=== PATIENT | female | born 1990 | race African-American/Black ===

== ENCOUNTER 2019-11-13 18:30 | Emergency (ER) | payer SELFPAY | END 2019-11-13 20:53 | disposition left against medical advice (07) | LOC: ER 18:30 | DX: Z53.21 Procedure and treatment not carried out due to patient leaving prior to being seen by health care provider (principal) ==

== ENCOUNTER 2020-06-14 | Observation (INO) | payer MEDICAID ==
[~2020-06-14] VITALS: Ht 167.6 cm; Wt 104.3 kg
[2020-06-14] MEDS ORDERED: PREN-15 PO (02:44)
== END 2020-06-14 03:00 | disposition home or self-care (01) ==
LOC: 8 EST LDRP
PROVIDERS: ADMIT Obstetrics & Gynecology; ATTEND Obstetrics & Gynecology
DX: O42.92 Full-term premature rupture of membranes, unspecified as to length of time between rupture and onset of labor (principal); O62.9 Abnormality of forces of labor, unspecified; Z3A.38 38 weeks gestation of pregnancy
CPT/HCPCS: 76815; 76818; 99281; G0378

== ENCOUNTER → 2020-06-15 | Outpatient (CLI) | payer MEDICAID ==
[~2020-06-15] MED LIST: IBUP-2028 PO; PREN-15 PO
== END | disposition home or self-care (01) ==
LOC: LAB 12:26
PROVIDERS: ATTEND Obstetrics & Gynecology
DX: Z01.818 Encounter for other preprocedural examination (principal); Z11.59 Encounter for screening for other viral diseases
CPT/HCPCS: C9803; U0003

== ENCOUNTER 2020-06-17 07:27 | Inpatient (IN) | payer MEDICAID ==
[~2020-06-17] VITALS: Ht 167.6 cm; Wt 92.1 kg
[~2020-06-17 07:27] MED LIST changes: -IBUP-2028 PO
[2020-06-17] MEDS ORDERED: DEXT 5%/LR + PITOCIN 20UNITS/L 1,000 ML IV SCH (08:56)
[2020-06-17 09:13] LABS: BASOPHILS % 0.4 % (0.0-2.0); EOSINOPHILS % 0.7 % (0.0-5.0); HEMATOCRIT. 36.1 % (36.0-48.0); HEMOGLOBIN. 12.3 g/dL (12.0-16.0); LYMPHOCYTES % 20.7 % (20.0-50.0); MEAN CORPUSCULAR HEMOGLOBIN 29.6 pg (28.0-32.0); MEAN CORPUSCULAR VOLUME 86.9 fL (81.0-99.0); MEAN PLATELET VOLUME 9.2 fl (7.4-10.4); MONOCYTES % 8.2 % (2.0-8.0); PLATELET 165 x1000/uL (130-400); RED BLOOD CELL COUNT 4.16 mill/uL (4.2-5.4); RED CELL DISTRIBUTION WIDTH 18.5 % (11.6-14.6)
[2020-06-17 09:16] LABS: CLARITY URINE CLEAR (CLEAR); COLOR URINE YELLOW (YELLOW); KETONES URINE NEGATIVE (NEGATIVE); LEUKOCYTE ESTERASE URINE NEGATIVE (NEGATIVE); NITRITE URINE NEGATIVE (NEGATIVE); OCCULT BLOOD URINE NEGATIVE (NEGATIVE); PH URINE 5.5 (4.5-8.0); PROTEIN URINE NEGATIVE (NEGATIVE); SPECIFIC GRAVITY URINE 1.013 (1.005-1.030); UROBILINOGEN URINE 0.2 E.U./dL (0.2-1.0)
[2020-06-17] MEDS: LACTATED RINGERS 1,000 ML IV SCH ×2 (09:19→09:21)
[2020-06-17 09:28] LABS: PARTIAL THROMBOPLASTIN TIME 28.2 sec (23.4-31.0); PROTHROMBIN TIME 10.5 sec (9.6-11.0)
[2020-06-17 09:37] LABS: *AMPHETAMINES SCREEN URINE NEGATIVE (NEGATIVE); *BARBITURATES SCREEN URINE NEGATIVE (NEGATIVE)
[2020-06-17 09:38] LABS: *BENZODIAZEPINES SCREEN URINE NEGATIVE (NEGATIVE); *COCAINE SCREEN URINE NEGATIVE (NEGATIVE); CANNABINOID URINE SCREEN NEGATIVE (NEGATIVE); METHADONE URINE SCREEN NEGATIVE (NEGATIVE); OPIATES URINE SCREEN NEGATIVE (NEGATIVE); PHENCYCLIDINE URINE SCREEN NEGATIVE (NEGATIVE)
[2020-06-17] MEDS ORDERED: CITRIC ACID/SODIUM CITRATE SOLN 30ML UDC PO ONE (09:45)
[2020-06-17] MEDS ORDERED: MIDAZOLAM HCL 2 MG/2 ML VIAL ONE (10:32)
[2020-06-17] MEDS ORDERED: FENTANYL CITRATE/PF 50MCG/ML 5ML VIAL ONE (10:32)
[2020-06-17] MEDS ORDERED: MORPHINE SULFATE/PF 1MG/ML 10ML AMP ONE (10:32)
[2020-06-17] MEDS ORDERED: DIPHENHYDRAMINE 25MG CAPSULE PO PRN (12:00)
[2020-06-17] MEDS ORDERED: IBUPROFEN 400MG TABLET PO PRN (12:00)
[2020-06-17] MEDS ORDERED: ONDANSETRON HCL 4MG/2ML INJ IV PRN (12:00)
[2020-06-17] MEDS ORDERED: HYDROCODONE/ACETAMINOPHEN 5/325MG TABLET PO PRN (12:00)
[2020-06-17] MEDS ORDERED: RHO(D) IMMUNE GLOBULIN 300 MCG/SYR IM PRN (12:00)
[2020-06-17] MEDS ORDERED: LANOLIN OINT 7GM TUBE TOP PRN (12:00)
[2020-06-17 13:45] VITALS: BP 107/54
[2020-06-17 14:15] VITALS: BP 104/53
[2020-06-17 14:58] LABS: HEPATITIS B SURFACE ANTIGEN NEGATIVE
[2020-06-17] MEDS ORDERED: TETANUS AND DIPHTHERIA TOX/PF 0.5ML SYR (ADULT) IM ONE (15:30)
[2020-06-17] MEDS: DEXT 5%/LR + PITOCIN 20UNITS/L 1,000 ML IV SCH (17:49)
[2020-06-17] MEDS ORDERED: TETANUS, DIPHTHERIA, PERTUSSIS VAC/PF 0.5ML (>7YR OLD) IM ONE (18:00)
[2020-06-17 20:00] VITALS: BP 110/59
[2020-06-17] MEDS ORDERED: DOCUSATE SODIUM 100MG CAPSULE PO SCH (21:00)
[2020-06-18] VITALS: BP 117/49
[2020-06-18] MEDS: DEXT 5%/LR + PITOCIN 20UNITS/L 1,000 ML IV SCH (02:11)
[2020-06-18] MEDS ORDERED: DIPHENHYDRAMINE 50MG/ML VIAL IV PRN (03:00)
[2020-06-18] MEDS ORDERED: KETOROLAC 30MG/ML VIAL IV PRN (03:00)
[2020-06-18 04:00] VITALS: BP 97/65
[2020-06-18 07:17] LABS: BASOPHILS % 0.4 % (0.0-2.0); EOSINOPHILS % 0.9 % (0.0-5.0); HEMATOCRIT. 32.5 % (36.0-48.0); HEMOGLOBIN. 11.1 g/dL (12.0-16.0); LYMPHOCYTES % 12.7 % (20.0-50.0); MEAN CORPUSCULAR HEMOGLOBIN 29.9 pg (28.0-32.0); MEAN CORPUSCULAR VOLUME 87.2 fL (81.0-99.0); MEAN PLATELET VOLUME 9.4 fl (7.4-10.4); MONOCYTES % 7.7 % (2.0-8.0); NEUTROPHILS % 78.3 % (40.0-76.0); PLATELET 149 x1000/uL (130-400); RED BLOOD CELL COUNT 3.72 mill/uL (4.2-5.4); RED CELL DISTRIBUTION WIDTH 18.6 % (11.6-14.6)
[2020-06-18 08:42] VITALS: BP 104/54
[2020-06-18 16:00] VITALS: BP 101/52
[2020-06-18] MEDS: PRENATAL VIT/FE FUMARATE/FA TABLET PO SCH (16:07)
[2020-06-18] MEDS: ACETAMINOPHEN WITH CODEINE 300/30MG TABLET PO PRN ×2 (16:09→21:59)
[2020-06-18 20:30] VITALS: BP 129/84
[2020-06-19 05:10] VITALS: BP 105/52
[2020-06-19] MEDS: ACETAMINOPHEN WITH CODEINE 300/30MG TABLET PO PRN (05:42)
[2020-06-19 08:27] VITALS: BP_SYST 113; BP_SYST 115; BP_DIAS 58; BP_DIAS 68
[2020-06-19] MEDS: PRENATAL VIT/FE FUMARATE/FA TABLET PO SCH (09:28)
[2020-06-19] MEDS ORDERED: IBUP-2028 PO (09:34)
[2020-06-19] MEDS ORDERED: NA PHOS,M-B/NA PHOS,DI-BA ENEMA 118ML PR SCH (09:45)
== END 2020-06-19 14:40 | disposition home or self-care (01) | DRG 540 ==
LOC: OBSVTOIN 07:27 → 8 EST A/PP 07:27 → 8EST 13:35
PROVIDERS: ADMIT Obstetrics & Gynecology; ATTEND Obstetrics & Gynecology
PROC: 10D00Z1 Extraction of Products of Conception, Low, Open Approach (ICD-10-PCS; principal; 2020-06-17)
DX: O34.211 Maternal care for low transverse scar from previous cesarean delivery (principal); D62 Acute posthemorrhagic anemia; D57.3 Sickle-cell trait; O99.02 Anemia complicating childbirth; Z37.0 Single live birth; Z3A.39 39 weeks gestation of pregnancy
CPT/HCPCS: 36415; 80305; 81003; 85025; 86592; 86703; 86762; 86850; 86900; 86920; 87340; 88307; 90714; 90715; J1200; J1885; J2250; J2274; J2590; J3010

== ENCOUNTER 2022-08-06 16:31 | Emergency (ER) | payer MEDICAID ==
[~2022-08-06] VITALS: Ht 167.6 cm; Wt 104.0 kg
[~2022-08-06 16:31] MED LIST changes: +IBUP-2028 PO; -PREN-15 PO
[2022-08-06 16:33] VITALS: BP 155/68
[2022-08-06] MEDS ORDERED: ACETAMINOPHEN 325MG TABLET PO PRN (17:00)
[2022-08-06 17:22] LABS: BASOPHILS % 0.4 % (0.0-2.0); EOSINOPHILS % 0.5 % (0.0-5.0); HEMATOCRIT. 33.2 % (36.0-48.0); HEMOGLOBIN. 11.1 g/dL (12.0-16.0); LYMPHOCYTES % 15.3 % (20.0-50.0); MEAN CORPUSCULAR HEMOGLOBIN 28.4 pg (28.0-32.0); MEAN CORPUSCULAR VOLUME 84.9 fL (81.0-99.0); MEAN PLATELET VOLUME 7.8 fl (7.4-10.4); MONOCYTES % 6.6 % (2.0-8.0); NEUTROPHILS % 77.2 % (40.0-76.0); PLATELET 281 x1000/uL (130-400); RED BLOOD CELL COUNT 3.92 mill/uL (4.2-5.4); RED CELL DISTRIBUTION WIDTH 16.7 % (11.6-14.6)
[2022-08-06 17:26] LABS: CHLORIDE 106 mEq/L (98-107)
[2022-08-06 17:50] LABS: B-HCG QUANTITATIVE 42144 mIU/mL (<3)
[2022-08-06 20:36] LABS: CLARITY URINE CLEAR (CLEAR); COLOR URINE YELLOW (YELLOW); KETONES URINE 1+ (NEGATIVE); LEUKOCYTE ESTERASE URINE NEGATIVE (NEGATIVE); NITRITE URINE NEGATIVE (NEGATIVE); OCCULT BLOOD URINE NEGATIVE (NEGATIVE); PH URINE 5.5 (4.5-8.0); PROTEIN URINE NEGATIVE (NEGATIVE); SPECIFIC GRAVITY URINE 1.014 (1.005-1.030); UROBILINOGEN URINE 0.2 E.U./dL (0.2-1.0)
== END 2022-08-06 21:41 | disposition home or self-care (01) ==
LOC: ER 16:31
DX: O26.891 Other specified pregnancy related conditions, first trimester (principal); R10.9 Unspecified abdominal pain; Z3A.13 13 weeks gestation of pregnancy
CPT/HCPCS: 36415; 76801; 80053; 81003; 84702; 85025; 86850; 86900; 99284

== ENCOUNTER 2022-12-28 03:33 | Observation (INO) | payer MEDICAID ==
[~2022-12-28] VITALS: Ht 167.6 cm; Wt 106.6 kg
[2022-12-28] MEDS ORDERED: LACTATED RINGERS 1,000 ML IV ONE (04:15)
[2022-12-28] MEDS ORDERED: LACTATED RINGERS 1,000 ML IV SCH (04:15)
[2022-12-28] MEDS ORDERED: PREN1TAB78 PO (06:43)
[2022-12-28] MEDS ORDERED: FERR325T6 PO (06:43)
== END 2022-12-28 07:10 | disposition home or self-care (01) ==
LOC: 8 EST LDRP 03:33
PROVIDERS: ADMIT Obstetrics & Gynecology; ATTEND Obstetrics & Gynecology
DX: O26.893 Other specified pregnancy related conditions, third trimester (principal); R10.9 Unspecified abdominal pain; N89.8 Other specified noninflammatory disorders of vagina; O62.9 Abnormality of forces of labor, unspecified; Z3A.34 34 weeks gestation of pregnancy; Z98.891 History of uterine scar from previous surgery
CPT/HCPCS: 59025; 76805; 76818; 82731; 96360; 96361; G0378; 99281

== ENCOUNTER 2023-01-04 20:22 | Observation (INO) | payer MEDICAID ==
[~2023-01-04] VITALS: Ht 167.6 cm; Wt 106.6 kg
[~2023-01-04 20:22] MED LIST changes: +FERR325T6 PO; -IBUP-2028 PO; +PREN1TAB78 PO
[2023-01-04] MEDS ORDERED: ACETAMINOPHEN 500MG TABLET PO PRN ×2 (21:14→22:45)
[2023-01-04] MEDS ORDERED: ASPI-1497 PO (21:15)
[2023-01-04] MEDS ORDERED: LACTATED RINGERS 1,000 ML IV NR (21:17)
[2023-01-04] MEDS ORDERED: LACTATED RINGERS 1,000 ML IV SCH (21:30)
[2023-01-04 22:23] LABS: BASOPHILS % 0.3 % (0.0-2.0); EOSINOPHILS % 0.8 % (0.0-5.0); HEMATOCRIT. 34.5 % (36.0-48.0); HEMOGLOBIN. 11.6 g/dL (12.0-16.0); LYMPHOCYTES % 17.5 % (20.0-50.0); MEAN CORPUSCULAR VOLUME 89.5 fL (81.0-99.0); MEAN PLATELET VOLUME 8.5 fl (7.4-10.4); MONOCYTES % 7.6 % (2.0-8.0); NEUTROPHILS % 73.8 % (40.0-76.0); PLATELET 204 x1000/uL (130-400); RED BLOOD CELL COUNT 3.86 mill/uL (4.2-5.4)
[2023-01-04 22:25] LABS: CLARITY URINE CLEAR (CLEAR); COLOR URINE YELLOW (YELLOW); KETONES URINE NEGATIVE (NEGATIVE); LEUKOCYTE ESTERASE URINE NEGATIVE (NEGATIVE); NITRITE URINE NEGATIVE (NEGATIVE); OCCULT BLOOD URINE NEGATIVE (NEGATIVE); PROTEIN URINE NEGATIVE (NEGATIVE); SPECIFIC GRAVITY URINE 1.005 (1.005-1.030); UROBILINOGEN URINE 0.2 E.U./dL (0.2-1.0)
== END 2023-01-04 23:35 | disposition home or self-care (01) ==
LOC: 8 EST LDRP 20:22
PROVIDERS: ADMIT Obstetrics & Gynecology; ATTEND Obstetrics & Gynecology
DX: O26.893 Other specified pregnancy related conditions, third trimester (principal); R10.32 Left lower quadrant pain; R51.9 Headache, unspecified; Z3A.35 35 weeks gestation of pregnancy
CPT/HCPCS: 36415; 59025; 81003; 85025; 96360; G0378

== ENCOUNTER 2023-01-30 06:47 | Inpatient (IN) | payer MEDICAID, OTHER ==
[~2023-01-30] VITALS: Ht 167.6 cm; Wt 108.4 kg
[~2023-01-30 06:47] MED LIST changes: +ASPI-1497 PO
[2023-01-30] MEDS ORDERED: EPHEDRINE SULFATE 50MG/ML VIAL ONE (08:21)
[2023-01-30] MEDS ORDERED: MORPHINE SULFATE/PF 1MG/ML 10ML AMP ONE (08:21)
[2023-01-30] MEDS ORDERED: ONDANSETRON HCL 4MG/2ML INJ ONE (08:21)
[2023-01-30] MEDS ORDERED: CEFAZOLIN SODIUM 1000MG/VIAL ONE (08:21)
[2023-01-30] MEDS ORDERED: DIPHENHYDRAMINE 50MG/ML VIAL ONE (08:21)
[2023-01-30] MEDS ORDERED: OXYTOCIN 10 UNITS/ML 1ML ONE (08:21)
[2023-01-30] MEDS ORDERED: PHENYLEPHRINE HCL 10 MG/ML 1ML (IV VIAL) IV ONE (08:22)
[2023-01-30] MEDS ORDERED: SODIUM CHLORIDE 0.9% 10ML VIAL ONE (08:22)
[2023-01-30] MEDS ORDERED: FENTANYL CITRATE/PF 50MCG/ML 2ML VIAL ONE (08:22)
[2023-01-30] MEDS ORDERED: NALOXONE HCL 0.4 MG/ML 1ML VIAL IM PRN (08:30)
[2023-01-30] MEDS: LACTATED RINGERS 1,000 ML IV SCH ×2 (09:18→10:31)
[2023-01-30 09:58] LABS: BASOPHILS % 0.3 % (0.0-2.0); EOSINOPHILS % 0.6 % (0.0-5.0); HEMATOCRIT. 33.9 % (36.0-48.0); HEMOGLOBIN. 11.5 g/dL (12.0-16.0); LYMPHOCYTES % 17.3 % (20.0-50.0); MEAN CORPUSCULAR HEMOGLOBIN 29.9 pg (28.0-32.0); MEAN CORPUSCULAR VOLUME 88.2 fL (81.0-99.0); MEAN PLATELET VOLUME 8.8 fl (7.4-10.4); MONOCYTES % 8.2 % (2.0-8.0); NEUTROPHILS % 73.6 % (40.0-76.0); PLATELET 183 x1000/uL (130-400); RED BLOOD CELL COUNT 3.84 mill/uL (4.2-5.4); RED CELL DISTRIBUTION WIDTH 17.1 % (11.6-14.6)
[2023-01-30 10:05] LABS: PARTIAL THROMBOPLASTIN TIME 28.3 sec (23.4-31.0); PROTHROMBIN TIME 10.4 sec (9.6-11.0)
[2023-01-30 10:08] LABS: CLARITY URINE CLEAR (CLEAR); COLOR URINE YELLOW (YELLOW); KETONES URINE NEGATIVE (NEGATIVE); LEUKOCYTE ESTERASE URINE NEGATIVE (NEGATIVE); NITRITE URINE NEGATIVE (NEGATIVE); OCCULT BLOOD URINE NEGATIVE (NEGATIVE); PH URINE 5.5 (4.5-8.0); PROTEIN URINE NEGATIVE (NEGATIVE); SPECIFIC GRAVITY URINE 1.014 (1.005-1.030); UROBILINOGEN URINE 0.2 E.U./dL (0.2-1.0)
[2023-01-30 10:34] LABS: HEPATITIS B SURFACE ANTIGEN NEGATIVE
[2023-01-30 10:38] LABS: *AMPHETAMINES SCREEN URINE NEGATIVE (NEGATIVE); *BARBITURATES SCREEN URINE NEGATIVE (NEGATIVE); *BENZODIAZEPINES SCREEN URINE NEGATIVE (NEGATIVE); *COCAINE SCREEN URINE NEGATIVE (NEGATIVE); CANNABINOID URINE SCREEN NEGATIVE (NEGATIVE); METHADONE URINE SCREEN NEGATIVE (NEGATIVE); OPIATES URINE SCREEN NEGATIVE (NEGATIVE); PHENCYCLIDINE URINE SCREEN NEGATIVE (NEGATIVE)
[2023-01-30] MEDS ORDERED: KETOROLAC 60MG/2ML VIAL IM ONE (15:15)
[2023-01-30] MEDS ORDERED: NALOXONE HCL 0.4 MG/ML 1ML VIAL IV PRN (15:30)
[2023-01-30] MEDS ORDERED: DIPHENHYDRAMINE 50MG/ML VIAL IV PRN (15:30)
[2023-01-30] MEDS ORDERED: BUTORPHANOL TARTRATE 2 MG/ML VIAL IV PRN (15:30)
[2023-01-30] MEDS ORDERED: LANOLIN OINT 7GM TUBE TOP PRN (16:30)
[2023-01-30] MEDS ORDERED: ONDANSETRON HCL 4MG/2ML INJ IV PRN (16:30)
[2023-01-30] MEDS ORDERED: RHO(D) IMMUNE GLOBULIN 300 MCG/SYR IM PRN (16:30)
[2023-01-30] MEDS ORDERED: OXYTOCIN 30 UNITS/500ML NS PMX 500 ML IV SCH (16:30)
[2023-01-30] MEDS ORDERED: DIPHENHYDRAMINE 25MG CAPSULE PO PRN (16:30)
[2023-01-30] MEDS ORDERED: BISACODYL 10MG SUPP PR PRN (16:30)
[2023-01-30 18:30] VITALS: BP 105/55
[2023-01-30 20:20] VITALS: BP 116/70
[2023-01-30] MEDS: KETOROLAC 30MG/ML VIAL IV SCH (20:30)
[2023-01-31] MEDS: LACTATED RINGERS 1,000 ML IV SCH ×2 (00:57→09:21)
[2023-01-31 01:00] VITALS: BP 110/61
[2023-01-31] MEDS: KETOROLAC 30MG/ML VIAL IV SCH ×2 (02:21→09:20)
[2023-01-31 03:00] VITALS: BP 103/53
[2023-01-31 05:39] LABS: BASOPHILS % 0.3 % (0.0-2.0); EOSINOPHILS % 0.8 % (0.0-5.0); HEMATOCRIT. 28.1 % (36.0-48.0); HEMOGLOBIN. 9.7 g/dL (12.0-16.0); LYMPHOCYTES % 13.1 % (20.0-50.0); MEAN CORPUSCULAR HEMOGLOBIN 30.4 pg (28.0-32.0); MEAN CORPUSCULAR VOLUME 88.1 fL (81.0-99.0); MEAN PLATELET VOLUME 8.5 fl (7.4-10.4); MONOCYTES % 8.7 % (2.0-8.0); NEUTROPHILS % 77.1 % (40.0-76.0); PLATELET 150 x1000/uL (130-400); RED BLOOD CELL COUNT 3.19 mill/uL (4.2-5.4)
[2023-01-31 08:00] VITALS: BP 97/48
[2023-01-31] MEDS: PRENATAL VIT/FE FUMARATE/FA TABLET PO SCH (09:26)
[2023-01-31 15:41] VITALS: BP 114/48
[2023-01-31] MEDS: IBUPROFEN 400MG TABLET PO PRN (17:48)
[2023-01-31] MEDS: HYDROCODONE/ACETAMINOPHEN 5/325MG TABLET PO PRN ×2 (18:56→23:34)
[2023-01-31 20:00] VITALS: BP 109/52
[2023-01-31] MEDS: DOCUSATE SODIUM 100MG CAPSULE PO SCH ×2 (21:00→22:26)
[2023-02-01] MEDS: HYDROCODONE/ACETAMINOPHEN 5/325MG TABLET PO PRN ×7 (03:50→21:10)
[2023-02-01 04:00] VITALS: BP 117/66
[2023-02-01 09:30] VITALS: BP 105/55
[2023-02-01 16:10] VITALS: BP 112/60
[2023-02-01 22:04] VITALS: BP 111/51
[2023-02-02] MEDS: HYDROCODONE/ACETAMINOPHEN 5/325MG TABLET PO PRN (02:44)
[2023-02-02 05:52] VITALS: BP 112/70
[2023-02-02 08:15] VITALS: BP 114/60
[2023-02-02] MEDS: IBUPROFEN 400MG TABLET PO PRN (08:41)
[2023-02-02] MEDS: PRENATAL VIT/FE FUMARATE/FA TABLET PO SCH (08:41)
[2023-02-02] MEDS ORDERED: IBUP-2030 MT (10:14)
== END 2023-02-02 12:40 | disposition home or self-care (01) | DRG 539 ==
LOC: 8 EST LDRP 06:47 → OBSVTOIN 06:47 → 8EST 19:25
PROVIDERS: ADMIT Obstetrics & Gynecology; ATTEND Obstetrics & Gynecology
PROC: 10D00Z1 Extraction of Products of Conception, Low, Open Approach (ICD-10-PCS; principal; 2023-01-30)
PROC: 0UB70ZZ Excision of Bilateral Fallopian Tubes, Open Approach (ICD-10-PCS; 2023-01-30)
DX: O34.211 Maternal care for low transverse scar from previous cesarean delivery (principal); D62 Acute posthemorrhagic anemia; O99.214 Obesity complicating childbirth; O99.02 Anemia complicating childbirth; Z37.0 Single live birth; Z3A.38 38 weeks gestation of pregnancy; Z20.822 Contact with and (suspected) exposure to COVID-19; Z30.2 Encounter for sterilization
CPT/HCPCS: 36415; 80305; 81003; 85025; 86592; 86703; 86762; 86850; 86900; 86920; 87340; 87426; 88302; 88307; 99281; J0690; J1200; J1885; J2274; J2370; J2405; J3010; J3490; J7120; A4315; J2590